=== PATIENT | male | born 1945 | race Hispanic/Latino ===

== ENCOUNTER 2022-12-21 12:35 | Emergency (ER) | payer MEDICARE | END 2022-12-21 13:22 | disposition home or self-care (01) | LOC: NAV ERS 12:35 | DX: L25.9 Unspecified contact dermatitis, unspecified cause (principal); E11.9 Type 2 diabetes mellitus without complications; I10 Essential (primary) hypertension | CPT/HCPCS: 99282 ==

== ENCOUNTER 2023-12-02 18:51 | Emergency (ER) | payer MEDICARE | END 2023-12-02 20:18 | disposition home or self-care (01) | LOC: NAV ERS 18:51 | DX: K59.00 Constipation, unspecified (principal); E11.9 Type 2 diabetes mellitus without complications; I10 Essential (primary) hypertension; Z79.899 Other long term (current) drug therapy; Z85.038 Personal history of other malignant neoplasm of large intestine; Z93.3 Colostomy status | CPT/HCPCS: 99283 ==

== ENCOUNTER 2024-02-21 11:16 | Emergency (ER) | payer MEDICARE ==
[~2024-02-21 11:16] MED LIST: Iopamidol 370 76% 100 ML VIAL ONE
[2024-02-21] MEDS ORDERED: fentaNYL 50 mcg/mL 1 mL Vial ONE (11:56)
[2024-02-21] MEDS ORDERED: Sodium Chloride 0.9% 1,000 ML ONE (11:56)
[2024-02-21 12:35] LABS: #Basophils 0.1 thou/uL (0.0-0.2); #Lymphocytes 0.7 thou/uL (1.20-3.40); #Monocytes 0.2 thou/uL (0.11-0.59); #Neutrophils 15.9 thou/uL (1.40-6.50); %Basophils 0.4 % (0.0-1.0); %Eosinophils 0.2 % (0.0-10.0); %Lymphocytes 3.9 % (21.0-51.0); %Monocytes 1.4 % (0.0-10.0); %Neutrophils 94.1 % (42.0-75.0); Hematocrit 27.1 % (42.0-52.0); Hemoglobin 9.3 g/dL (14.0-18.0); Mean Corpuscular HGB CONC 34.4 g/dL (32.0-36.0); Mean Corpuscular Volume 93.2 fl (78.0-98.0); Mean Platelet Volume 7.6 fL (7.4-10.4); Platelet Count 336 10x3/uL (130-400); RBC Distribution Width 12.5 % (11.5-14.5); Red Blood Cell (RBC) Count 2.91 mill/uL (4.70-6.10); White Blood Cell (WBC) Count 16.9 10x3/uL (4.8-10.8)
[2024-02-21 12:47] LABS: ALT (SGPT) 18 U/L (8-55); AST (SGOT) 21 U/L (5-34); Albumin 3.3 g/dL (3.4-4.8); Alkaline Phosphatase 86 U/L (40-110); Anion Gap 19 mmol/L (10-20); BUN (Urea Nitrogen) 27 mg/dL (8.4-25.7); Bilirubin, Total 0.6 mg/dL (0.2-1.2); Calc. Creatinine Clearance 0 mL/min (70-130); Calcium 8.6 mg/dL (7.8-10.44); Carbon Dioxide 16 mmol/L (23-31); Chloride 103 mmol/L (98-107); Estimated GFR 61; Glucose 197 mg/dL (83-110); Lipase 12 U/L (8-78); Potassium 5.1 mmol/L (3.5-5.1); Protein, Total 7.3 g/dL (5.8-8.1); Sodium 133 mmol/L (136-145)
[2024-02-21 15:08] LABS: Bilirubin Negative (Negative); Blood, Urine Small (Negative); Clarity Cloudy (Clear); Glucose, Urine (Dipstick) 500 mg/dL (Negative); Ketone, Urine 15 mg/dL (Negative); Leukocyte Moderate (Negative); Nitrite Positive (Negative); Protein, Urine (Dipstick) Trace mg/dL (Neg-Trace); Urobilinogen 0.2 mg/dL (Less than 2); pH, Urine 5.5 (5.0-9.0)
[2024-02-21] MEDS ORDERED: Sodium Chloride 0.9% 500 ML ONE (15:23)
[2024-02-21 15:36] LABS: Bacteria/HPF 2+ HPF (None Seen); CAUTI Indications for Culture Dysuria,urgency,freq; Renal Epithelial 0-3 HPF (None Seen); Squamous Epithelial 0-3 HPF (0-3); WBC/HPF Greater than 50 HPF (0-3)
[2024-02-21 15:38] LABS: Urine Culture Reflex Yes Yes
[2024-02-21] MEDS ORDERED: Cipro 250 MG TAB ONE (15:56)
== END 2024-02-21 16:16 | disposition home or self-care (01) ==
LOC: NAV ERS 11:16
DX: N39.0 Urinary tract infection, site not specified (principal); I10 Essential (primary) hypertension; E11.9 Type 2 diabetes mellitus without complications; Z79.899 Other long term (current) drug therapy; Z79.84 Long term (current) use of oral hypoglycemic drugs
CPT/HCPCS: 51702; 74177; 80053; 81001; 83690; 85025; 87077; 87086; 87186; 93005; 96374; J3010; J7030; Q9967

== ENCOUNTER 2024-04-20 11:56 | Emergency (ER) | payer MEDICARE, MEDICAID ==
[2024-04-20] MEDS ORDERED: Acetaminophen 500 MG TAB ONE (12:34)
[2024-04-20 12:55] LABS: #Lymphocytes 0.6 thou/uL (1.20-3.40); #Monocytes 0.1 thou/uL (0.11-0.59); #Neutrophils 3.1 thou/uL (1.40-6.50); %Basophils 0.7 % (0.0-1.0); %Eosinophils 1.2 % (0.0-10.0); %Lymphocytes 14.4 % (21.0-51.0); %Neutrophils 80.8 % (42.0-75.0); Hematocrit 34.3 % (42.0-52.0); Hemoglobin 11.4 g/dL (14.0-18.0); Mean Corpuscular HGB CONC 33.1 g/dL (32.0-36.0); Mean Corpuscular Hemoglobin 31.3 pg (27.0-31.0); Mean Corpuscular Volume 94.6 fl (78.0-98.0); Mean Platelet Volume 6.9 fL (7.4-10.4); Platelet Count 216 10x3/uL (130-400); RBC Distribution Width 14.2 % (11.5-14.5); Red Blood Cell (RBC) Count 3.62 mill/uL (4.70-6.10); White Blood Cell (WBC) Count 3.9 10x3/uL (4.8-10.8)
[2024-04-20 12:59] LABS: INR-International Normal Ratio 1.1; Prothrombin Time 14.5 sec (12.0-14.7)
[2024-04-20 13:00] LABS: PTT 23.9 sec (22.9-36.1)
[2024-04-20 13:08] LABS: ALT (SGPT) 18 U/L (8-55); AST (SGOT) 16 U/L (5-34); Albumin 3.2 g/dL (3.4-4.8); Alkaline Phosphatase 99 U/L (40-110); Anion Gap 13 mmol/L (10-20); BUN (Urea Nitrogen) 23 mg/dL (8.4-25.7); Bilirubin, Total 0.4 mg/dL (0.2-1.2); Calc. Creatinine Clearance 0 mL/min (70-130); Calcium 8.4 mg/dL (7.8-10.44); Carbon Dioxide 22 mmol/L (23-31); Chloride 104 mmol/L (98-107); Estimated GFR 81; Globulin 3.7 g/dL (2.4-3.5); Glucose 247 mg/dL (83-110); Potassium 4.7 mmol/L (3.5-5.1); Protein, Total 6.9 g/dL (5.8-8.1); Sodium 134 mmol/L (136-145)
== END 2024-04-20 14:35 | disposition home or self-care (01) ==
LOC: NAV ERS 11:56
DX: S70.02XA Contusion of left hip, initial encounter (principal); E11.9 Type 2 diabetes mellitus without complications; I10 Essential (primary) hypertension; Z79.899 Other long term (current) drug therapy; Z79.84 Long term (current) use of oral hypoglycemic drugs; W18.30XA Fall on same level, unspecified, initial encounter
CPT/HCPCS: 36415; 72170; 80053; 85025; 85610; 85730; 86850; 86900; 86901; 99283

== ENCOUNTER 2025-01-23 04:20 | Emergency (ER) | payer MEDICARE, MEDICAID ==
[2025-01-23 05:18] LABS: Leukocyte Large (Negative); Protein, Urine (Dipstick) > or equal to 300 mg/dL (Neg-Trace); Specific Gravity, Urine Less/Equal 1.005 (1.005-1.030)
[2025-01-23 05:23] LABS: Glucose, Urine (Dipstick) Unable to Interpret mg/dL (Negative)
[2025-01-23 05:26] LABS: CAUTI Indications for Culture Acute Hematuria; RBC/HPF Greater than 50 HPF (0-3); WBC/HPF Greater than 50 HPF (0-3)
[2025-01-23 05:31] LABS: Bacteria/HPF 1+ HPF (None Seen)
[2025-01-23 05:32] LABS: Urine Culture Reflex Yes Yes
[2025-01-23] MEDS ORDERED: Cipro 250 MG TAB ONE (05:38)
== END 2025-01-23 05:51 | disposition home or self-care (01) ==
LOC: NAV ERS 04:20
DX: N39.0 Urinary tract infection, site not specified (principal); R31.9 Hematuria, unspecified; E11.9 Type 2 diabetes mellitus without complications; I10 Essential (primary) hypertension; Z79.4 Long term (current) use of insulin
CPT/HCPCS: 81001; 87077; 87086; 87186; 99283